=== PATIENT | male | born 1985 | race Caucasian/White ===

== ENCOUNTER 2017-09-19 15:01 | Inpatient (IN) | payer OTHER ==
[~2017-09-19] VITALS: Ht 180.3 cm; Wt 79.5 kg
[2017-09-19 16:11] LABS: HEMATOCRIT 43.7 % (38.0-50.0); MCH 31.5 PG (29.0-34.0); MCHC 36.2 G/DL (30.0-36.0); MCV 87.1 FL (86-99); PLATELET COUNT 358 K/uL (156-360); RBC DIS.WIDTH-CV 11.9 % (11.8-14.6); RBC DIS.WIDTH-SD 38.5 % (39-53); RED BLOOD COUNT 5.02 M/uL (4.00-5.50); WHITE BLOOD COUNT 7.7 K/uL (4.1-10.2)
[2017-09-19 16:21] LABS: CHLORIDE 108 mEq/L (99-109); POTASSIUM 3.8 mEq/L (3.7-5.4); SODIUM 139 mEq/L (136-147)
[2017-09-19 16:23] LABS: GLUCOSE 101 mg/dL (70-99)
[2017-09-19 16:25] LABS: ANION GAP 9 MEQ/L (2-14); TOTAL BILIRUBIN 0.7 mg/dL (0.0-1.0)
[2017-09-19 16:26] LABS: SERUM ETHYL ALCOHOL < 10 mg/dL
[2017-09-19 16:27] LABS: GFR ESTIMATE (CALCULATED) > 59 mL/min/
[2017-09-19 16:28] LABS: ALKALINE PHOSPHATASE 63 IU/L (3-129)
[2017-09-19 16:29] LABS: UREA NITROGEN (BUN) 10 mg/dL (9-23)
[2017-09-19 16:31] LABS: SALICYLATE < 5.0 MG/DL (15-30)
[2017-09-19 20:13] VITALS: BP 167/85
[2017-09-20 07:27] VITALS: BP 131/81
== END 2017-09-28 14:03 | disposition home or self-care (01) | DRG 885 ==
LOC: EME 15:01 → EDOF 18:00 → 1WEST 18:00 → ENRESERV 18:51 → 1WEST 18:51
PROVIDERS: Emergency Medicine
DX: F20.0 Paranoid schizophrenia (principal); Z91.14 Patient's other noncompliance with medication regimen; Z56.0 Unemployment, unspecified; Z60.2 Problems related to living alone; Z72.0 Tobacco use
CPT/HCPCS: 80053; 80306 90; 85027; 90837; 97150 GO; 97166 GO; 99281; 99285; G0480

== ENCOUNTER 2017-10-24 15:18 | Inpatient (IN) | payer OTHER ==
[~2017-10-24] VITALS: Ht 180.3 cm; Wt 71.0 kg
[2017-10-24 18:18] LABS: HEMATOCRIT 43.7 % (38.0-50.0); HEMOGLOBIN 15.6 G/DL (12.5-16.6); MCH 31.3 PG (29.0-34.0); MCHC 35.7 G/DL (30.0-36.0); MCV 87.8 FL (86-99); PLATELET COUNT 375 K/uL (156-360); RBC DIS.WIDTH-SD 38.8 % (39-53); RED BLOOD COUNT 4.98 M/uL (4.00-5.50); WHITE BLOOD COUNT 17.4 K/uL (4.1-10.2)
[2017-10-24 18:26] LABS: CHLORIDE 109 mEq/L (99-109); POTASSIUM 3.8 mEq/L (3.7-5.4); SODIUM 139 mEq/L (136-147)
[2017-10-24 18:28] LABS: GLUCOSE 101 mg/dL (70-99)
[2017-10-24 18:31] LABS: SERUM ETHYL ALCOHOL < 10 mg/dL
[2017-10-24 18:32] LABS: CREATININE 1.1 mg/dL (0.6-1.3); GFR ESTIMATE (CALCULATED) > 59 mL/min/ (58.99-99999)
[2017-10-24 18:34] LABS: UREA NITROGEN (BUN) 22 mg/dL (9-23)
[2017-10-24 18:35] LABS: ACETAMINOPHEN (TYLENOL) < 10 mcg/mL (10-30); SALICYLATE < 5.0 MG/DL (15-30)
[2017-10-24 18:57] LABS: AMPHETAMINE NEGATIVE (500 ng/mL); BARBITURATES NEGATIVE (200 ng/mL); BENZODIAZEPINES NEGATIVE (150 ng/mL); BUPRENORPHINE NEGATIVE (10 ng/mL); COCAINE NEGATIVE (150 ng/mL); METHADONE NEGATIVE (200 ng/mL); METHAMPHETAMINE NEGATIVE (500 ng/mL); OPIATES (MORPHINE) NEGATIVE (100 ng/mL); OXYCODONE NEGATIVE (100 ng/mL); PHENCYCLIDINE NEGATIVE (25 ng/mL); PROPOXYPHENE NEGATIVE (300 ng/mL); THC CANNABINOIDS NEGATIVE (50 ng/mL); TRICYCLIC ANTIDEPRESSANTS NEGATIVE (300 ng/mL)
[2017-10-25 14:34] VITALS: BP 132/75
[2017-10-29] MEDS ORDERED: MINIPRESS2 MG PO (20:13)
[2017-11-28] MEDS ORDERED: RISPERDAL50 MG/2 ML IM (09:01)
== END 2017-11-28 10:27 | disposition home or self-care (01) | DRG 885 ==
LOC: EME 15:18 → 1WEST 10-25 13:40 → EDOF 10-25 13:40 → ENRESERV 10-25 14:12 → 1WEST 10-25 14:38
PROVIDERS: Emergency Medicine
DX: F20.9 Schizophrenia, unspecified (principal); F17.200 Nicotine dependence, unspecified, uncomplicated; Z91.14 Patient's other noncompliance with medication regimen
CPT/HCPCS: 80048; 85027; 90837; 97150 GO; 97166 GO; 99281; 99285; G0480; J1630; J2060; J2794